=== PATIENT | male | born 1955 | race Caucasian/White ===

== ENCOUNTER → 2017-02-04 | Outpatient (REF) ==
[2017-02-04 16:07] LABS: PSA-TOTAL 0.17 ng/mL (0-4); THYROID STIMULATING HORMONE 2.09 uIU/mL (0.465-4.680)
[2017-02-04 18:30] LABS: TOTAL IRON BINDING CAPACITY 330 ug/dL (261-462)
[2017-02-04 18:57] LABS: FERRITIN 7 ng/mL (18-464)
== END ==
LOC: ZLAB.WCH 14:30
PROVIDERS: Internal Medicine
DX: Z01.89 Encounter for other specified special examinations (principal)
CPT/HCPCS: G0103

== ENCOUNTER → 2018-02-06 | Outpatient (REF) ==
[2018-02-06 17:04] LABS: THYROID STIMULATING HORMONE 2.6 uIU/mL (0.465-4.680)
[2018-02-06 17:06] LABS: PSA-TOTAL 0.21 ng/mL (0-4)
== END ==
LOC: ZLAB.WCH 16:00
PROVIDERS: Internal Medicine
DX: Z01.89 Encounter for other specified special examinations (principal)
CPT/HCPCS: G0103

== ENCOUNTER 2020-10-21 08:48 | Day surgery (SDC) | payer MEDICARE ==
[~2020-10-21] VITALS: Ht 175.3 cm; Wt 82.0 kg
[2020-10-21 09:29] VITALS: BP 115/64; PULSE 64; TEMP 98
[2020-10-21] MEDS ORDERED: ONE-A-DAY ESSE1 EACH PO (09:32)
[2020-10-21] MEDS ORDERED: VITAMIN E 400 U4001 PO (09:33)
[2020-10-21] MEDS ORDERED: VITAMIN C500 MG PO (09:34)
[2020-10-21] MEDS ORDERED: IRON TABLETS325 MG PO (09:34)
[2020-10-21] MEDS ORDERED: PRILOSEC 20MG20 MG PO (09:35)
[2020-10-21] MEDS ORDERED: FLONASEALLERGY NS (09:35)
[2020-10-21] MEDS ORDERED: CIALIS20 MG PO (09:36)
[2020-10-21] MEDS ORDERED: FISH OIL 1000MG1 CAP PO (09:36)
[2020-10-21] MEDS ORDERED: GLUCOSAMINE & C1 TAB PO (09:36)
[2020-10-21] MEDS ORDERED: PROBIOTIC FORMU1 CAP PO (09:37)
--- NOTE | 2020-10-21 09:39 | NUR ---
TO RM 5 AT 0900- CALL LIGHT IN REACH AT BEDSIDE.
[2020-10-21] MEDS ORDERED: NORCO 325 MG-51 TAB PO (12:45)
[2020-10-21 13:20] VITALS: BP 116/60; PULSE 64; TEMP 97.6
--- NOTE | 2020-10-21 13:20 | NUR ---
TO RM 5 PER CART FROM PACU. ALERT ORIENTED X3, TALKING TO STAFF AND . C/O PAIN 3/ AND DENIES NEED FOR PAIN MED AT THIS TIME.
[2020-10-21 13:35] VITALS: BP 114/64; PULSE 59
--- NOTE | 2020-10-21 13:35 | NUR ---
C/O "SOME DOUBLE VISION" RECEIVED APPLE JUICE AND BLUEBERRY MUFFIN STATED HE IS PASSING GAS.
[2020-10-21 13:50] VITALS: BP 115/71; PULSE 67
--- NOTE | 2020-10-21 13:50 | NUR ---
PATIENT RESTING QUIETLY
[2020-10-21 13:53] VITALS: TEMP 98.5
[2020-10-21 14:05] VITALS: BP 115/58; PULSE 79
--- NOTE | 2020-10-21 14:05 | NUR ---
CONTINUES TO C/O 07/13.
--- NOTE | 2020-10-21 14:15 | NUR ---
AMBULATED TO BATHROOM WITH STAND BY ASSIST. VOIDED AND AMBULATED BACK TO BED. PATIENT STATED HE WAS READY TO GO HOME.
--- NOTE | 2020-10-21 14:30 | NUR ---
RECEIVED DISCHARGE INSTRUCTIONS AND VERBALIZED UNDERSTANDING. DISCONTINUED IV AND INT IS ASSISTING PATIENT TO GET DRESSED.
--- NOTE | 2020-10-21 14:40 | NUR ---
DISCHARGED PER WC BY NURSING STAFF TO PRIVATE CAR IN CARE OF .
== END 2020-10-21 15:00 | disposition home or self-care (01) ==
LOC: SDCO 08:48
DX: K40.20 Bilateral inguinal hernia, without obstruction or gangrene, not specified as recurrent (principal); K21.9 Gastro-esophageal reflux disease without esophagitis; J30.9 Allergic rhinitis, unspecified; M19.90 Unspecified osteoarthritis, unspecified site; D64.9 Anemia, unspecified; G47.33 Obstructive sleep apnea (adult) (pediatric); Z99.89 Dependence on other enabling machines and devices; Z85.46 Personal history of malignant neoplasm of prostate; Z79.899 Other long term (current) drug therapy; Z80.42 Family history of malignant neoplasm of prostate
CPT/HCPCS: C1781; J1885; J2405; J2704; J3010; J7120